=== PATIENT | female | born 1940 ===

== ENCOUNTER 2020-04-06 11:32 | Outpatient (CLI) | payer OTHER | END 2020-04-06 11:38 | disposition home or self-care (01) | LOC: RAD 11:32 | PROVIDERS: ATTEND Orthopaedic Surgery | DX: M75.122 Complete rotator cuff tear or rupture of left shoulder, not specified as traumatic (principal) ==

== ENCOUNTER → 2020-06-11 | Outpatient (CLI) | payer OTHER | END | disposition home or self-care (01) | LOC: OFIC 805 12:30 | PROVIDERS: ATTEND Otolaryngology | DX: S09.8XXA Other specified injuries of head, initial encounter (principal) ==

== ENCOUNTER → 2020-07-18 | Outpatient (CLI) | payer OTHER | END | disposition home or self-care (01) | LOC: OFIC 805 13:00 | PROVIDERS: ATTEND Otolaryngology | DX: J32.3 Chronic sphenoidal sinusitis (principal); S09.8XXA Other specified injuries of head, initial encounter ==